=== PATIENT | male | born 1945 | race Caucasian/White ===

== ENCOUNTER → 2017-04-25 12:24 | Outpatient (CLI) | payer MEDICARE ==
[2017-04-25 13:22] LABS: CREATININE - SERUM 1.7 mg/dL (0.6-1.3)
== END | disposition home or self-care (01) ==
LOC: D.CT 12:24
PROVIDERS: Family Medicine
DX: R26.89 Other abnormalities of gait and mobility (principal)

== ENCOUNTER → 2017-05-14 07:28 | Outpatient (CLI) | payer MEDICARE | END | disposition home or self-care (01) | LOC: D.OPS 07:28 → D.NM 08:00 | DX: G91.9 Hydrocephalus, unspecified (principal) ==

== ENCOUNTER → 2017-05-25 14:05 | Outpatient (CLI) | payer MEDICARE ==
[2017-05-25 15:08] LABS: CREATININE - SERUM 1.5 mg/dL (0.6-1.3)
== END | disposition home or self-care (01) ==
LOC: D.CT 14:05
PROVIDERS: Family Medicine
DX: I67.9 Cerebrovascular disease, unspecified (principal)

== ENCOUNTER 2017-07-10 12:03 | Inpatient (IN) | payer MEDICARE ==
[~2017-07-10] VITALS: Ht 172.7 cm; Wt 95.9 kg
[2017-07-10 12:59] LABS: BASOPHILS 0.2 % (0-2); EOSINOPHILS 0 % (0-7); HEMATOCRIT 41.5 % (42.0-54.0); HEMOGLOBIN 14.7 g/dL (13.5-17.5); IMMATURE GRANULOCYTES 0.4 % (0-5); LYMPHOCYTES 3.5 % (15-50); MCH 31.3 pg (26.0-34.0); MCHC 35.4 g/dL (31.0-37.0); MCV 88.3 fL (80.0-100.0); MEAN PLATELET VOLUME 10.9 fL (7.4-10.4); MONOCYTES 6.8 % (2-11); NEUTROPHILS 89.1 % (40-80); PLATELET COUNT 108 10x3/uL (130-400); RDW 12.5 % (11.5-14.5); WBC 12.6 10x3/uL (4.8-10.8)
[2017-07-10 13:07] LABS: APTT 25.8 SECONDS (22.8-39.4); INR 1.21 (0.85-1.17); PROTIME 15.2 SECONDS (11.6-15.0)
[2017-07-10 13:18] LABS: ALBUMIN 3.4 g/dL (3.4-5.0); ALKALINE PHOSPHATASE 180 U/L (46-116); ALT (SGPT) 657 U/L (10-68); BILIRUBIN - TOTAL 3.59 mg/dL (0.2-1.3); CALC OSMOLALITY 281 mosm/kg (275-300); CARBON DIOXIDE 26.9 mmol/L (21.0-32.0); CHLORIDE - SERUM 100 mmol/L (98-107); CREATININE - SERUM 1.6 mg/dL (0.6-1.3); GLUCOSE 286 mg/dL (74-106); PROTEIN - SERUM 6.4 g/dL (6.4-8.2); SODIUM 136 mmol/L (136-145); UREA NITROGEN 12 mg/dL (7-18); eGFR NON AFRICAN AMERICAN 46 mL/min (90-120)
[2017-07-10 13:24] LABS: CREATINE KINASE 80 UL (21-232)
[2017-07-10 13:25] LABS: TROPONIN-I < 0.017 ng/mL (0.000-0.060)
[2017-07-10 13:49] LABS: APPEARANCE CLEAR (CLEAR); BACTERIA FEW /hpf (NONE SEEN); BILIRUBIN NEGATIVE (NEGATIVE); COLOR YELLOW (YELLOW); EPITHELIAL CELLS OCC /hpf (0-5); GLUCOSE 1000 mg/dL (NEGATIVE); KETONE SMALL mg/dL (NEGATIVE); LEUKOCYTE ESTERASE NEGATIVE (NEGATIVE); NITRITE NEGATIVE (NEGATIVE); PROTEIN NEGATIVE (NEGATIVE); RED CELLS - URINE OCC /hpf (0-5); WHITE CELLS - URINE 0-5 /hpf (0-5)
[2017-07-10 13:54] LABS: UDS - AMPHET NEGATIVE QUAL (NEGATIVE); UDS - BARB NEGATIVE QUAL (NEGATIVE); UDS - BENZO NEGATIVE QUAL (NEGATIVE); UDS - COCAINE NEGATIVE QUAL (NEGATIVE); UDS - METH NEGATIVE QUAL (NEGATIVE); UDS - OPIATE NEGATIVE QUAL (NEGATIVE); UDS - PCP NEGATIVE QUAL (NEGATIVE); UDS - THC NEGATIVE QUAL (NEGATIVE)
[2017-07-10] MEDS ORDERED: OMEPRAZOLE20 M1 PO (17:02)
[2017-07-10] MEDS ORDERED: COREG12.5 MG PO (17:02)
[2017-07-10] MEDS ORDERED: LANOXIN125 MCG PO (17:03)
[2017-07-10] MEDS ORDERED: GLUCOPHAGE1000 MG PO (17:03)
[2017-07-10] MEDS ORDERED: ZYLOPRIM100 MG PO (17:04)
[2017-07-10] MEDS ORDERED: ANTIVERT12.5 MG PO (17:04)
[2017-07-10] MEDS ORDERED: COZAAR50 MG PO (17:05)
[2017-07-10] MEDS ORDERED: PROSCAR5 MG PO (17:05)
[2017-07-10] MEDS ORDERED: ZOCOR40 MG PO (17:05)
[2017-07-10] MEDS ORDERED: PAXIL20 MG PO (17:06)
[2017-07-10] MEDS ORDERED: PYRIDOXINE HCL100 MG PO (17:06)
[2017-07-10] MEDS ORDERED: VITAMIN B-121000 MCG PO (17:07)
[2017-07-10] MEDS ORDERED: MAGNESIUM OXID250 MG PO (17:07)
[2017-07-10] MEDS ORDERED: VITAMIN D5000 UNIT PO (17:07)
[2017-07-10] MEDS ORDERED: ASPIRIN325 MG PO (17:07)
[2017-07-10] MEDS ORDERED: FOLIC ACID0.8 MG PO (17:08)
[2017-07-10] MEDS ORDERED: LUTEIN20 MG PO (17:09)
[2017-07-10] MEDS ORDERED: FLOMAX0.4 MG PO (17:09)
[2017-07-10 17:34] VITALS: BP 168/91; BMI 32.6
[2017-07-10 20:16] VITALS: BP 156/57
--- NOTE | 2017-07-11 01:46 | NUR ---
NURSE ROUNDS 07/10/17 20:30 - PT LYING IN BED, AWAKE, ALERT, ORIENTED AT THAT TIME, DENIED ANY NEEDS. HOWEVER, THE SHIFT HAS PROGRESSED, PT HAS HAD SEVERAL BOUTS OF ODD BEHAVIOR, AND CONFUSION. I HAVE BEEN IN PTS ROOM SEVERAL TIMES SINCE SHIFT CHANGE AND ORIGINAL NURSING ROUND. THE SECOND TIME I WENT INTO PATIENTS ROOM TO CHECK FSBS, PT WAS LYING IN BED ON HIS RIGHT SIDE, COMPLETELY NAKED, WITHOUT ANY EXPLANATION TO WHY. THE THIRD TIME I WENT INTO PATIENTS ROOM DURING HOURLY ROUNDS, HE HAD TAKEN THE IV TUBING OUT OF HIS J-LOOP SO THE FLUID WAS DRAINING ALL OF THE FLOOR. THE FOURTH TIME I CHECKED ON PT, HE WAS LYING ACROSS HIS BED, HAD BEEN INCONTINENT OF URINE, AND UNABLE TO SIT UP ON HIS OWN. PT IS UNABLE TO UNDERSTAND HOW AND WHEN TO USE HIS CALL LIGHT. PT CONTINUES TO OCCLUDE HIS IV, SO I HAVE SL IV AT THIS TIME. PT HAS BEEN BATHED, LINEN AND GOWN CHANGE, PLACED BACK IN BED, AND RESTING COMFORTABLY AT THIS TIME. WILL CONTINUE TO MONITOR CLOSELY. BED LOW, CALL LIGHT IN REACH, SIDE RAILS X 2, HOB 20 DEGREES, BED ALARM ON.
[2017-07-11 04:55] VITALS: BP 134/75
[2017-07-11 05:29] LABS: BASOPHILS 0.2 % (0-2); EOSINOPHILS 0.4 % (0-7); HEMATOCRIT 40.9 % (42.0-54.0); HEMOGLOBIN 14.4 g/dL (13.5-17.5); IMMATURE GRANULOCYTES 0.4 % (0-5); LYMPHOCYTES 5.8 % (15-50); MCH 31.4 pg (26.0-34.0); MCHC 35.2 g/dL (31.0-37.0); MCV 89.1 fL (80.0-100.0); MEAN PLATELET VOLUME 10.8 fL (7.4-10.4); NEUTROPHILS 87.2 % (40-80); PLATELET COUNT 113 10x3/uL (130-400); RBC 4.59 10x6/uL (4.20-6.10); RDW 12.8 % (11.5-14.5)
[2017-07-11 05:30] LABS: WBC 8.1 10x3/uL (4.8-10.8)
[2017-07-11 05:54] LABS: INR 1.28 (0.85-1.17); PROTIME 15.9 SECONDS (11.6-15.0)
[2017-07-11 06:13] LABS: ALBUMIN 3.4 g/dL (3.4-5.0); ANION GAP 11.6 mmol/L (8-16); BILIRUBIN - TOTAL 3.5 mg/dL (0.2-1.3); CARBON DIOXIDE 29.1 mmol/L (21.0-32.0); CHOL - HDL RATIO 3.5 ratio (2.3-4.9); CREATININE - SERUM 1.4 mg/dL (0.6-1.3); POTASSIUM - SERUM 3.7 mmol/L (3.5-5.1); PROTEIN - SERUM 6.3 g/dL (6.4-8.2)
[2017-07-11 06:16] LABS: % SATURATION 11 % (15-55); IRON 38 ug/dl (35-150); TOTAL IRON BIND CAPACITY 323 ug/dl (260-445); UNSAT IRON BIND CAPACITY 285 ug/dl (150-375)
--- NOTE | 2017-07-11 06:34 | HP ---
PATIENT: FERNANDO DING MEDICAL RECORD: [id number] ACCOUNT: [id number] LOCATION:[address] : [birth year] ADMISSION DATE: 07/10/17 HISTORY AND PHYSICAL EXAMINATION DATE OF ADMISSION: 07/10/2017 CHIEF COMPLAINT: Nausea and vomiting. HISTORY OF PRESENT ILLNESS: The patient is a 72-year-old gentleman who states he was awakened early this morning to have nausea and vomiting, some abdominal discomfort, presents to the Emergency Room for evaluation. PAST MEDICAL HISTORY: He has had a history of having gout. He has had hypertension. He has had a tonsillectomy. He has had a pacemaker placed, hypertension, diabetes mellitus, and hyperlipidemia. PAST SURGICAL HISTORY: He has had a tonsillectomy, adenoidectomy, had a hernia repair in 1970. He has had a cardiac ablation for atrial fibrillation. He has also had cataract from the right eye. FAMILY HISTORY: Mother of lung cancer. Father had Guillain-Crescent. HABITS: The patient is a nonsmoker, nondrinker. SOCIAL HISTORY: Born and raised in [facility]. He is retired. The patient does have 2 years of college. He is . MEDICATIONS: Include allopurinol 100 mg 1 p.o. q. day, aspirin 325 once a day, carvedilol 12.5 one p.o. b.i.d., digoxin 0.125 p.o. q. day, finasteride 5 mg once a day, folic acid 800 mcg once a day, losartan 50 mg once a day, meclizine 12.5 one every 6 hours p.r.n. dizziness, metformin 500 mg 2 tabs p.o. b.i.d. 1 at noon, omeprazole 20 mg once a day, Paxil 20 mg once a day, Zocor 40 mg daily, tamsulosin 0.4 mg p.o. q. day, vitamin D3 5000 international units daily. ALLERGIES: THE PATIENT IS ALLERGIC TO BUMEX, CIPRO, MUSHROOM PREDNISONE, REQUIP, SHELLFISH, AND SULFA. REVIEW OF SYSTEMS: CONSTITUTIONAL: He denies any headaches, seizure or syncope. Denies change in visual or auditory acuity. PULMONARY: He denies any shortness of breath, cough, congestion, history of TB, asthma or bronchitis. CARDIOVASCULAR: He has had no chest pain, palpitation, PND or orthopnea. GASTROINTESTINAL: No chronic nausea, vomiting, melena or hematochezia. GENITOURINARY: No urgency, frequency or dysuria. PHYSICAL EXAMINATION: VITAL SIGNS: His temperature is 99.4, his pulse was 80, respirations 24, his blood pressure 166/100. HEENT: Head is normocephalic. No lesions. Ears: TMs clear. Eyes: Pupils equal, round and reactive to light and his extraocular movements are intact. His nasal cavity, oral cavity and oropharynx clear. NECK: Supple. There is no adenopathy. HEART: Has a regular rate and rhythm. No murmurs, gallops, rub. HISTORY AND PHYSICAL [id number] MAGBYFERNANDO R LUNGS: Clear. ABDOMEN: Soft. There is minimal midepigastric tenderness. There is no ascites noted. EXTREMITIES: Lower extremities have no edema. LABORATORY DATA: The patient had a white count of 12.6, hemoglobin is 14.7 and his hematocrit is 41.5, platelets are 108. Sodium is 136, potassium 4, chloride is 100, CO2 is 26.9, BUN is 12, creatinine is 1.6, glucose is 286. He had AST of 951, total bilirubin was 3.59, ALT 657, alkaline phosphatase 180. Troponins were normal. His lipase is 843. ASSESSMENT: Acute onset of nausea and vomiting, hepatocellular dysfunction, possible pancreatitis with elevated lipase. PLAN: The patient will be admitted. He will be given clear liquid diet only. We will try to control his nausea and GI consultation will be obtained. We will recheck LFTs in the morning. We will check hepatitis profile, recheck lipase, also had a CA 19-9. TRANSINT:[id number] Voice Confirmation ID: [id number] DOCUMENT ID: [id number] LOLY FORDE MD at 0634 CC: [id number] DICTATION DATE: 07/10/171755 DESIGNER ARCHITECT: 07/10/172034 ADM IN [address] [id number] [place] [address]
[2017-07-11 06:46] LABS: BILIRUBIN - DIRECT 2.24 mg/dL (0.00-0.30); BILIRUBIN - INDIRECT 1.26 mg/dL (0.00-1.00)
[2017-07-11 08:43] VITALS: BP 155/75
[2017-07-11 11:17] LABS: HEPATITIS C ANTIBODY <0.1 (0.0-0.9)
[2017-07-11 11:58] VITALS: BP 147/80
[2017-07-11 13:38] VITALS: Ht 172.7 cm; Wt 95.9 kg
[2017-07-11 16:16] VITALS: BP 160/77
--- NOTE | 2017-07-11 16:58 | NUR ---
Patient Name: FERNANDO DING Admission Status: ER Accout number: [id number] Admission Date: 07-10-2017 : 1945 Admission Diagnosis: Attending: ASHWIN Current LOS: 1 Anticipated DC Date: Planned Disposition: Home Primary Insurance: MEDICARE A & B Discharge Planning Comments: * Is the patient Alert and Oriented? Yes 0 * How many steps to enter\exit or inside your home? 4 0 * PCP DR. FORDE 0 * Pharmacy [facility] 0 * Preadmission Environment Home with Family 0 * ADLs Independent 0 * Equipment [facility] CPAP 0 * Other Equipment [facility] - MEDICAL EQUIPMENT PROVIDER PREFERENCE 0 * List name and contact numbers for known caregivers / representatives who currently or will assist patient after discharge: MALLIKA IVERSON, SISTER, 0 * Community resources currently utilized None 0 * Please name any agencies selected above. NONE 0 * Additional services required to return to the preadmission environment? No 0 * Can the patient safely return to the preadmission environment? Yes 0 * Has this patient been hospitalized within the prior 30 days at any hospital? No 0 CM MET WITH PT IN ROOM TO DISCUSS DISCHARGE PLANNING AND NEEDS. PT REPORTS LIVING AT HOME INDEPENDENTLY WITH HIS ADULT SISTER. PT HAS CANE AND CPAP FROM [facility]. PT HAS NO OUTSIDE SERVICES ASSISTING IN THE HOME. CM DISCUSSED AVAILABILITY OF HOME HEALTH, REHAB SERVICES AND MEDICAL EQUIPMENT. PT DENIES DISCHARGE NEEDS, REPORTS HIS SISTER WILL PICK HIM UP FOR DISCHARGE HOME. Food Service Assistant: Vinicio Hinkle
--- NOTE | 2017-07-11 18:07 | NUR ---
RESTING IN BED. NO CHANGE. ALERT AND ORIENTED X4. FAMILY AT BEDSIDE. REQUESTING DIET TO BE ADVANCED. DENIES SOB OR PAIN. CONTINUE PLAN OF CARE. BED LOCKED AND LOW. CALL LIGHT IN REACH. TWO SIDERAILS UP.
[2017-07-11 19:00] VITALS: BP 172/82
--- NOTE | 2017-07-11 23:00 | NUR ---
PT UP IN CHAIR. UP AD RUPA. [place]. ALERT & ORIENTED TO PERSON, PLACE, AND SITUATION. IV REMOVED BY PT, IV NEEDS TO BE RESITED. FSBS ACHS. REFUSES SCD'S. CALL LIGHT WITHIN REACH.
[2017-07-12] VITALS: BP 153/96
[2017-07-12 04:00] VITALS: BP 166/86
--- NOTE | 2017-07-12 04:29 | NUR ---
FUNERAL HOME ASSISTANT AT BEDSIDE TO OBTAIN VITALS, CALL LIGHT IN REACH. WILL CONTINUE TO MONITOR.
--- NOTE | 2017-07-12 05:36 | NUR ---
PT LYING IN BED. EYES CLOSED. CHEST RISING AND FALLING. BED IN LOWEST POSITION AND CALL LIGHT WITHIN REACH.
[2017-07-12 05:54] LABS: BASOPHILS 0.4 % (0-2); EOSINOPHILS 0.4 % (0-7); HEMATOCRIT 42.8 % (42.0-54.0); HEMOGLOBIN 14.6 g/dL (13.5-17.5); IMMATURE GRANULOCYTES 0.4 % (0-5); LYMPHOCYTES 16.5 % (15-50); MCH 30.9 pg (26.0-34.0); MCHC 34.1 g/dL (31.0-37.0); MCV 90.7 fL (80.0-100.0); MEAN PLATELET VOLUME 11.6 fL (7.4-10.4); MONOCYTES 10.1 % (2-11); NEUTROPHILS 72.2 % (40-80); PLATELET COUNT 100 10x3/uL (130-400); RBC 4.72 10x6/uL (4.20-6.10); RDW 12.8 % (11.5-14.5)
[2017-07-12 05:59] LABS: WBC 5.3 10x3/uL (4.8-10.8)
[2017-07-12 06:15] LABS: INR 1.18 (0.85-1.17); PROTIME 14.9 SECONDS (11.6-15.0)
[2017-07-12 06:35] LABS: ALBUMIN 3.2 g/dL (3.4-5.0); BILIRUBIN - TOTAL 2.04 mg/dL (0.2-1.3); CARBON DIOXIDE 27.5 mmol/L (21.0-32.0); CREATININE - SERUM 1.5 mg/dL (0.6-1.3); PROTEIN - SERUM 6.1 g/dL (6.4-8.2)
[2017-07-12 06:36] LABS: ANION GAP 13.1 mmol/L (8-16); POTASSIUM - SERUM 4.6 mmol/L (3.5-5.1)
--- NOTE | 2017-07-12 07:49 | NUR ---
AAOX4 RESP UNLABORED DENIES ANY NEEDS OR DISCOMFORT AT THIS TIME NAD NOTED
[2017-07-12 08:23] VITALS: BP 175/93
--- NOTE | 2017-07-12 09:11 | NUR ---
ASSESSMENT COMPLETED.AWAKE AND ALERT. [place]. CONFUSED AT TIMES.ABD DISTENDED. ON ROOM AIR. NO IV. DENIES ANY NEEDS. MAY LEAVE IV OUP PER DR. FORDE. CALL LIGHT IN REACH WITH SR UP. WILL MONITOR
[2017-07-12 11:36] VITALS: BP 124/97
[2017-07-12 12:18] LABS: HELICOBACTER PYLORI IGM AB <1.0 units (0.0-8.9)
[2017-07-12 13:18] LABS: FOLATE (FOLIC ACID) - SERUM >20.0 ng/mL (>3.0)
[2017-07-12 14:21] LABS: ANA REFLEX - DIRECT Negative (Negative); EBV - EARLY ANTIGEN AB IGG <9.0 U/mL (0.0-8.9); EBV - NUCLEAR ANTIGEN AB IGG 69.5 U/mL (0.0-17.9); EBV VIRAL CAPSID AB IGG >600.0 U/mL (0.0-17.9); EBV VIRAL CAPSID AB IGM <36.0 U/mL (0.0-35.9)
[2017-07-12 15:49] VITALS: BP 134/80
--- NOTE | 2017-07-12 16:04 | NUR ---
LYING QUIETLY WITH EYES CLOSED. NO DISTRESS NOTED.
[2017-07-12 19:00] VITALS: BP 163/92
--- NOTE | 2017-07-12 20:00 | NUR ---
PT RESTING IN BED. ALERT/ORIENTED. NONLABORED RESPIRATIONS ON ROOM AIR. NO IV ACCESS, AGREED TO LET NURSE START A SALINE LOCK IN AM BEFORE HIS SCHEDULED LAP CHOLEY SURVEY. AT BEDSIDE. SEE SHIFT ASSESSMENT. CPOC.
[2017-07-13] VITALS (16 sets, daily range): BP systolic 106–168; BP diastolic 76–108
--- NOTE | 2017-07-13 03:26 | NUR ---
RESTING WITH NO DISTRESS. AT BEDSIDE. CPOC.
[2017-07-13 05:20] LABS: BASOPHILS 0.5 % (0-2); EOSINOPHILS 0.5 % (0-7); HEMATOCRIT 41.7 % (42.0-54.0); HEMOGLOBIN 14.5 g/dL (13.5-17.5); IMMATURE GRANULOCYTES 0.5 % (0-5); LYMPHOCYTES 26.8 % (15-50); MCH 30.9 pg (26.0-34.0); MCHC 34.8 g/dL (31.0-37.0); MEAN PLATELET VOLUME 11.3 fL (7.4-10.4); MONOCYTES 10.9 % (2-11); NEUTROPHILS 60.8 % (40-80); PLATELET COUNT 111 10x3/uL (130-400); RDW 12.4 % (11.5-14.5); WBC 4.4 10x3/uL (4.8-10.8)
[2017-07-13 05:23] LABS: MCV 88.7 fL (80.0-100.0)
[2017-07-13 05:37] LABS: ALBUMIN 3.1 g/dL (3.4-5.0); BILIRUBIN - TOTAL 1.3 mg/dL (0.2-1.3); CALCIUM 8.7 mg/dL (8.5-10.1); CARBON DIOXIDE 27.3 mmol/L (21.0-32.0); CREATININE - SERUM 1.5 mg/dL (0.6-1.3); PROTEIN - SERUM 6.5 g/dL (6.4-8.2)
[2017-07-13 05:38] LABS: ANION GAP 10.3 mmol/L (8-16); POTASSIUM - SERUM 3.6 mmol/L (3.5-5.1)
--- NOTE | 2017-07-13 07:10 | NUR ---
READY FOR SURGERY. IV TO LEFT HAND. ON ROOM AIR. ALERT AND ORIENTED. CALL LIGHT IN REACH. FAMILY AT BED SIDE
--- NOTE | 2017-07-13 10:31 | NUR ---
PATIENT ARRIVED PACU WITH BP 196/111. NEXT CONSECTUIVE PRESSURES CONTIUNED TO RISE. ANESTHESIA NOTIFIED, HYDRALAZINE ORDERED 10MG Q10 FOR 2 DOSES. TOTAL OF 20 GIVEN OVER 20 MINUTES. PATIENT STATED HE NEEDED TO VOID, BUT WAS UNABLE. DR HURD NOTIFIED, ORDERS RECIEVED TO PLACE INDWELLING DILL CATHETER. PATIENT FEELING SOB. DUONEB UPDRAFT GIVEN.
[2017-07-13 11:06] LABS: PRO BNP 2192 pg/mL (0-125); TROPONIN-I < 0.017 ng/mL (0.000-0.060)
--- NOTE | 2017-07-13 12:27 | NUR ---
37 MINUTES HOLDING TIME FROM PHASE 2 DISCHARGE TILL TRANSPORT TO ICU. NO RN AVAILABLE IN ICU TO TAKE REPORT. MULTIPLE CALLS TO BILINGUAL EXECUTIVE ASSISTANT AND ICU BEFORE TRANSPORT COULD TAKE PLACE. PATIENT TRANSPORTED TO RM 2308.
--- NOTE | 2017-07-13 13:33 | NUR ---
DR PATTERSON NOTIFIED OF CONSULT. PT IN AFIB HR 125.
--- NOTE | 2017-07-13 14:26 | NUR ---
SECOND IV STARTED IN LEFT FA WTIH 20G CATH, ASEPTIC TECH, GOOD BLOOD RETURN, AND FLUSHED EASILY.
--- NOTE | 2017-07-13 14:27 | NUR ---
PATIENT STATES HE FEELS LIKE HE ALMOST . PATIENT IS UNABLE TO TELL ME AT WHAT POINT HE FELT THIS WAY. TACHYPNEA NOTED, AND PATIENT IS DIAPHORETIC. CM AFIB WITH COUPLETS NOTED AT RATE OF 130'S. PATIENT RETURNS TO SLEEP EASILY.
[2017-07-13 15:21] LABS: MITOCHONDRIAL ANTIBODY 8.8 Units (0.0-20.0); SMOOTH MUSCLE ABS (ACTIN) 11 Units (0-19)
--- NOTE | 2017-07-13 15:30 | NUR ---
DR PATTERSON HERE SPEAKING TO FAMILY. NEW ORDERS OBTAINED.
--- NOTE | 2017-07-13 17:40 | NUR ---
SLEEPING NO DISTRESS NOTED. SR UP X 2.
--- NOTE | 2017-07-13 19:30 | NUR ---
SHIFT ASSESSMENT COMPLETED. SEE ASSESSMENT FLOWSHEET FOR DETAILS.
[2017-07-13 19:45] LABS: CKMB 0.5 U/L (0.0-3.6); CREATINE KINASE 92 UL (21-232); TROPONIN-I 0.026 ng/mL (0.000-0.060)
--- NOTE | 2017-07-13 20:10 | NUR ---
FAMILY OBTAINED FROM WAITING ROOM TO HELP REORIENT. WAS CONFUSED TO TIME, PLACE AND SITATION AND TRYING TO PULL OUT DILL CATHETER.
--- NOTE | 2017-07-13 22:10 | NUR ---
FAMILY LEFT FOR THE WAITING ROOM. COOPERATIVE AND MORE ORIENTED AT THIS TIME. NOT TRYING TO PULL AT INVASIVE LINES. WILL MONITOR.
--- NOTE | 2017-07-13 23:15 | NUR ---
REASSESSMENT COMPLETED. SEE ASSESSMENT FLOWSHEET. WILL MONITOR.
--- NOTE | 2017-07-13 23:40 | NUR ---
DOES C/O PAIN TO ABDOMEN AT THIS TIME. NORCO GIVEN WHEN OFFERED.
[2017-07-14] VITALS (51 sets, daily range): BP systolic 107–169; BP diastolic 47–107
--- NOTE | 2017-07-14 00:30 | NUR ---
EYES CLOSED. NO ACUTE DISTRESS NOTED.
--- NOTE | 2017-07-14 02:00 | NUR ---
EYES CLOSED. NO ACUTE DISTRESS NOTED.
[2017-07-14 02:14] LABS: CKMB 0.2 U/L (0.0-3.6); CREATINE KINASE 82 UL (21-232); TROPONIN-I 0.022 ng/mL (0.000-0.060)
--- NOTE | 2017-07-14 04:30 | NUR ---
REASSESSMENT COMPLETED. SEE ASSESSMENT FLOWSHEET. NO NEW ACUTE CHANGES NOTED. NIGEL, PHLEBO AT BEDSIDE TO DRAW AM LABS. DENIES PAIN OR NEEDS AT THIS TIME. DENIES NAUSEA.
[2017-07-14 05:19] LABS: BASOPHILS 0.1 % (0-2); EOSINOPHILS 0 % (0-7); HEMOGLOBIN 14.4 g/dL (13.5-17.5); IMMATURE GRANULOCYTES 0.3 % (0-5); LYMPHOCYTES 8.8 % (15-50); MCHC 34.3 g/dL (31.0-37.0); MCV 90.3 fL (80.0-100.0); MEAN PLATELET VOLUME 11.5 fL (7.4-10.4); MONOCYTES 11.9 % (2-11); NEUTROPHILS 78.9 % (40-80); PLATELET COUNT 112 10x3/uL (130-400); RBC 4.65 10x6/uL (4.20-6.10); RDW 13.1 % (11.5-14.5); WBC 9.3 10x3/uL (4.8-10.8)
[2017-07-14 05:45] LABS: ALBUMIN 2.9 g/dL (3.4-5.0); BILIRUBIN - TOTAL 1.91 mg/dL (0.2-1.3); CALCIUM 8.5 mg/dL (8.5-10.1); CARBON DIOXIDE 27.1 mmol/L (21.0-32.0); CREATININE - SERUM 1.8 mg/dL (0.6-1.3); PROTEIN - SERUM 6.4 g/dL (6.4-8.2)
[2017-07-14 05:49] LABS: ANION GAP 11.1 mmol/L (8-16); POTASSIUM - SERUM 4.2 mmol/L (3.5-5.1)
--- NOTE | 2017-07-14 06:00 | NUR ---
NSR ON THE MONITOR. ON ROOM AIR. O2 SATS 92-96% ON ROOM AIR. NO ACUTE DISTRESS NOTED.
--- NOTE | 2017-07-14 07:00 | NUR ---
RECD CARE OF PT. A&O X3
--- NOTE | 2017-07-14 08:37 | NUR ---
BREAKFAST TRAY SERVED.
[2017-07-14 08:47] LABS: CREATINE KINASE 80 UL (21-232); TROPONIN-I < 0.017 ng/mL (0.000-0.060)
--- NOTE | 2017-07-14 09:04 | NUR ---
MR. DING WAS MISSING HIS TEETH AND CELL PHONE. HIS SISTER IS AT BEDSIDE. SHE HAS BOTH OF THEM.
--- NOTE | 2017-07-14 09:30 | NUR ---
REPOSITIONED IN BED. PULLED UP IN BED.
--- NOTE | 2017-07-14 12:00 | NUR ---
FAMILY AT BEDSIDE. UPDATED.
--- NOTE | 2017-07-14 13:30 | NUR ---
REPOSITIONED IN BED. PULLED UP IN BED.
--- NOTE | 2017-07-14 13:38 | NUR ---
NITRO INITIATED FOR 169/107 BP.
--- NOTE | 2017-07-14 13:55 | NUR ---
NITRO BEING TITRTED TO EFFECT.
--- NOTE | 2017-07-14 14:17 | NUR ---
EKG BEING DONE FOR ECTOPY.
--- NOTE | 2017-07-14 14:31 | NUR ---
DR. LEONARDO CONKLIN FOR ECTOPY AND EKG RESULTS.
--- NOTE | 2017-07-14 15:01 | NUR ---
DR. VELAZQUEZ PAGED FOR ECTOPY AND INCREASED CRACKLES AND WHEEZES IN LUNGS.
--- NOTE | 2017-07-14 15:10 | NUR ---
DR. VELAZQUEZ RETURNED PAGE. ORDERS REC'D . CONSULT JADE.
--- NOTE | 2017-07-14 15:15 | NUR ---
REPOSITIONED IN BED. PULLED UP IN BED.
--- NOTE | 2017-07-14 15:27 | NUR ---
SPOKE WITH DR. HANSEN ABOUT CONSULT.
--- NOTE | 2017-07-14 15:30 | NUR ---
DR. PATTERSON RETURNED SECOND PAGE. UPDATED ABOUT PVC'S. PAC'S AND ABOUT EKG RESULTS. ORDERS REC'D TO INCREASE CARDIZEM DRIP TO 10CC VA HOUR.
--- NOTE | 2017-07-14 16:09 | NUR ---
DR. HANSEN AT BEDSIDE.
--- NOTE | 2017-07-14 16:20 | NUR ---
PULLED UP IN BED. REPOSITIONED FOR COMFORT.
[2017-07-14 16:47] LABS: CKMB 0.7 U/L (0.0-3.6); CREATINE KINASE 98 UL (21-232); MAGNESIUM - SERUM 1.8 mg/dL (1.8-2.4)
[2017-07-14 16:51] LABS: TROPONIN-I < 0.017 ng/mL (0.000-0.060)
--- NOTE | 2017-07-14 17:00 | NUR ---
CE NORMAL. MAG LEVEL NORMAL.
--- NOTE | 2017-07-14 18:28 | NUR ---
PULLS BOTH PIV'S OUT.
--- NOTE | 2017-07-14 18:28 | NUR ---
RESTARTED PIV X2 AT LEFT FORE ARM X2 STIC KS. FAMILY AT BEDSIDE.
--- NOTE | 2017-07-14 19:45 | NUR ---
RECEIVED CARE OF PT, ASSESSMENT PER FLOWSHEET. PT ORIENTED TO SELF, ON 2L O2 VIA NC, HR CONTROLLED A-FIB WITH FREQUENT PACS AND PVCS, EXP WHEEZES AUSCULTATED BILATERALLY WITH DIMINISHED BASES, PPP, BS HYPOACTIVE, ABD FIRM AND DISTENDED, MILDLY TENDER TO PALP, GTTS INFUSING PER FLOWSHEET, FAMILY AT BEDSIDE.
--- NOTE | 2017-07-14 21:20 | NUR ---
PT SISTERS AT BEDSIDE, ALL DENY ANY NEEDS, CONT TO MONITOR.
[2017-07-14 22:43] LABS: CALC OSMOLALITY 283 mosm/kg (275-300); CALCIUM 9.1 mg/dL (8.5-10.1); CARBON DIOXIDE 27.2 mmol/L (21.0-32.0); CHLORIDE - SERUM 101 mmol/L (98-107); CKMB 0.3 U/L (0.0-3.6); CREATINE KINASE 79 UL (21-232); CREATININE - SERUM 1.8 mg/dL (0.6-1.3); POTASSIUM - SERUM 3.4 mmol/L (3.5-5.1); SODIUM 137 mmol/L (136-145); TROPONIN-I < 0.017 ng/mL (0.000-0.060); UREA NITROGEN 21 mg/dL (7-18); eGFR NON AFRICAN AMERICAN 40 mL/min (90-120)
[2017-07-14 22:44] LABS: GLUCOSE 229 mg/dL (74-106)
--- NOTE | 2017-07-14 23:55 | NUR ---
DR PATTERSON PAGED REGARDING PT C/O SOB AND ARRYTHMIAS, ORDERS RECEIVED.
[2017-07-15] VITALS (24 sets, daily range): BP systolic 115–167; BP diastolic 76–101
--- NOTE | 2017-07-15 00:26 | NUR ---
FIRST OF 4 10 MEQ KCL RIDERS INITIATED PER ELECTROLYTE PROTOCOL TO TREAT K+ OF 3.4 PER ELECTROLYTE PROTOCOL.
--- NOTE | 2017-07-15 01:07 | NUR ---
PT RESTING WITH HOME CPAP IN PLACE, BP STABLE, CONT POC.
--- NOTE | 2017-07-15 04:30 | NUR ---
PT VERY AGITATED AND STATING THAT HE HAS BEEN KIDNAPPED, ALL ATTEMPTS TO REORIENT ARE UNSUCCESSFUL, PT SISTER BROUGHT BACK TO SIT WITH HIM. PT CALMER AND COOPERATIVE WITH HER PRESENCE, ABLE TO SOMEWHAT REORIENT PT.
--- NOTE | 2017-07-15 06:10 | NUR ---
PT SISTERS REMAIN AT BEDSIDE, PT VISITING EASILY IN NO APPARENT DISTRESS, PACED ON CM WITH OCC PVC'S.
[2017-07-15 06:11] LABS: BASOPHILS 0.1 % (0-2); EOSINOPHILS 0 % (0-7); HEMATOCRIT 37.5 % (42.0-54.0); HEMOGLOBIN 12.7 g/dL (13.5-17.5); IMMATURE GRANULOCYTES 0.4 % (0-5); LYMPHOCYTES 9.5 % (15-50); MCH 30.5 pg (26.0-34.0); MCHC 33.9 g/dL (31.0-37.0); MCV 89.9 fL (80.0-100.0); MEAN PLATELET VOLUME 11.7 fL (7.4-10.4); MONOCYTES 9.4 % (2-11); NEUTROPHILS 80.6 % (40-80); PLATELET COUNT 111 10x3/uL (130-400); RBC 4.17 10x6/uL (4.20-6.10); RDW 12.8 % (11.5-14.5); WBC 10.4 10x3/uL (4.8-10.8)
[2017-07-15 06:57] LABS: ALBUMIN 2.5 g/dL (3.4-5.0); ALKALINE PHOSPHATASE 106 U/L (46-116); BILIRUBIN - DIRECT 0.59 mg/dL (0.00-0.30); BILIRUBIN - INDIRECT 0.83 mg/dL (0.00-1.00); BILIRUBIN - TOTAL 1.42 mg/dL (0.2-1.3); CALC OSMOLALITY 280 mosm/kg (275-300); CALCIUM 8.8 mg/dL (8.5-10.1); CARBON DIOXIDE 26.8 mmol/L (21.0-32.0); CHLORIDE - SERUM 101 mmol/L (98-107); CKMB 0.4 U/L (0.0-3.6); CREATINE KINASE 77 UL (21-232); CREATININE - SERUM 1.5 mg/dL (0.6-1.3); GLUCOSE 221 mg/dL (74-106); MAGNESIUM - SERUM 1.8 mg/dL (1.8-2.4); PHOSPHOROUS 2.4 mg/dL (2.5-4.9); PROTEIN - SERUM 6.1 g/dL (6.4-8.2); SODIUM 136 mmol/L (136-145); THYROID STIMULATING HORMONE 0.76 uIU/mL (0.36-3.74); UREA NITROGEN 19 mg/dL (7-18); eGFR NON AFRICAN AMERICAN 49 mL/min (90-120)
[2017-07-15 07:01] LABS: ALT (SGPT) 76 U/L (10-68); TROPONIN-I < 0.017 ng/mL (0.000-0.060)
--- NOTE | 2017-07-15 17:40 | NUR ---
ABD LARGE DISTENDED BAND AIDS X 2 DRY AND INTACT. HYPOACTIVE BOWEL SOUNDS. BECOMES SHORT OF BREATH WHEN REPOSITIONING.
--- NOTE | 2017-07-15 17:41 | NUR ---
DR. PATTERSON CALLED TO DAY ABOUT ELEVATED BLOOD PRESSURE AND CHANGING PO MEDS FOR HEART RATE. ORDERS RECEIVED. PO MEDS GIVEN AND CARDIZEM, STOPPED 20 MIN AFTER PO MEDS GIVEN. CLONDINE GIV3EN FOR BLOOD PRESSURE. PATIENT RESTING WELL STATES HE HAS NO APPETITE. IV LEFT FOREARM WITHOUT SWELLING. PATIENT ALERT THIS AFTER NOON ADMITS THAT HE GETS ALITTLE CONFUSED AT TIMES. NAPPING AT INTERVALS. DILL CATH PATENT AND DRIAINING NAHED URINE.
--- NOTE | 2017-07-15 19:30 | NUR ---
SHIFT ASSESSMENT COMPLETE. ARM BAND IS TOO TIGHT. CUT IT OFF AND PLACED A NEW ONE ON HIS R WRIST. HE IS ALERT AND ORIENTED X4. SPEECH IS CLEAR, PERRLA, 3 MM, BRISK REACTION TO LIGHT. NC @ 2L/MIN. S1S2 AUDIBLE. V/S TEMP 98.2 ORAL, HR 94 A-FIB CONTROLLED, RR 16, O2 SAT 98%. EXPIRATORY WHEEZE HEARD BILAT THROUGHOUT ALL LOBES. ABD IS DISTENDED WITH HYPOACTIVE BS. INCISION SITES COVERED WITH BAND-AIDS, CDI. DILL CATH DRAINING NAHED COLORED URINE. RADIAL AND PEDAL PULSES PALP. PACEMAKER PRESENT. PT DENIES ANY REQUESTS AT THIS TIME. WILL CONT TO MONITOR.
--- NOTE | 2017-07-15 21:30 | NUR ---
FAMILY AT BEDSIDE. PT IS SITTING UP IN BED AND IS IN GOOD SPIRTIS. HE REQUESTS FRESH WATER. FRESH WATER DELIVERED PROMPTLY. NO FURTHER REQUESTS AT THIS TIME. CALL LIGHT IN REACH. WILL CONT TO MONITOR.
--- NOTE | 2017-07-15 23:15 | NUR ---
REASSESSMENT COMPLETE AT THIS TIME. ABD IS DISTENDED AND FIRM. INCISION SITES ARE CDI. BP READING IS 157/94 AT THIS TIME. SCDS REMOVED AND SKIN INSPECTED, WNL. S1S2 AUDIBLE, HR 75 BPM. PT IS A&O X4 AND IN GOOD SPIRITS. TEMP 98.3 ORAL. REPOSITIONED FOR COMFORT WITH PILLOW UNDER BACK. CALL LIGHT IN REACH. BED IN LOWEST POSITION. WILL CONT TO MONITOR.
[2017-07-16] VITALS (14 sets, daily range): BP systolic 105–165; BP diastolic 80–98
--- NOTE | 2017-07-16 01:30 | NUR ---
PT AWAKE AND ALERT IN BED AT THIS TIME AND STATES THAT HE IS TRYING TO FALL ASLEEP. HE DENIES ANY REQUESTS AT THIS TIME. NO SIGNS OF DISTRESS NOTED. INSTRUCTED HIM TO PUSH HIS CALL LIGHT IF HE NEEDS ANYTHING. PT STATES THAT HE UNDERSTANDS. CALL LIGHT IN REACH. BED IN LOWEST POSITION. WILL CONT TO MONITOR.
--- NOTE | 2017-07-16 03:30 | NUR ---
REASSESSMENT COMPLETE AT THIS TIME. NO CHANGES NOTED. VSS. NO SIGNS OF ACUTE DISTRESS. PT IS AWAKE AND ALERT AT THIS TIME. HE STATES THAT HE WOULD LIKE SOME FRESH WATER. REFILLED HIS REFRESHMENT. X-RAY IN ROOM NOW. WILL CONT TO MONITOR.
[2017-07-16 03:57] LABS: BASOPHILS 0.2 % (0-2); EOSINOPHILS 0.4 % (0-7); HEMATOCRIT 41.6 % (42.0-54.0); HEMOGLOBIN 14.3 g/dL (13.5-17.5); LYMPHOCYTES 13.4 % (15-50); MCH 30.9 pg (26.0-34.0); MCHC 34.4 g/dL (31.0-37.0); MCV 89.8 fL (80.0-100.0); MEAN PLATELET VOLUME 11.2 fL (7.4-10.4); MONOCYTES 5.9 % (2-11); NEUTROPHILS 79.1 % (40-80); RBC 4.63 10x6/uL (4.20-6.10); RDW 12.9 % (11.5-14.5)
[2017-07-16 04:03] LABS: PLATELET COUNT 141 10x3/uL (130-400)
[2017-07-16 04:16] LABS: ALBUMIN 2.4 g/dL (3.4-5.0); ANION GAP 13.5 mmol/L (8-16); BILIRUBIN - TOTAL 1.4 mg/dL (0.2-1.3); CALCIUM 8.9 mg/dL (8.5-10.1); CARBON DIOXIDE 24.3 mmol/L (21.0-32.0); CREATININE - SERUM 1.3 mg/dL (0.6-1.3); PHOSPHOROUS 2.4 mg/dL (2.5-4.9); POTASSIUM - SERUM 3.8 mmol/L (3.5-5.1); PROTEIN - SERUM 6.4 g/dL (6.4-8.2)
--- NOTE | 2017-07-16 05:30 | NUR ---
STARTED ELECTROLYTE PROTOCOL. 1 PACKAGE OF NEUTRA-PHOS ADMINISTERED. ORDER READS FOLLOWS: NEUTRA-PHOS X3 Q4 HRS. ADMINISTER NEXT PACKET AT 0930. PT DOES NOT HAVE ANY COMPLAINTS AT THIS TIME. WILL CONT TO MONITOR.
--- NOTE | 2017-07-16 07:00 | NUR ---
REPORT RECEIVED. ASSUMED CARE OF PATIENT. ASSESSMENT COMPLETE. PT ALERT AND ORIENTED. ON 2L NC. ABD DISTENDED, NO PAIN, NO TENDERNESS. PT IS PASSING GAS.
--- NOTE | 2017-07-16 10:00 | NUR ---
NUTRITION MONITORING & EVAL CHART REVIEWED, PT UP IN CHAIR. NURSING REPORTS PT WITH 100% INTAKE ADA DIET. RD FOLLOWING
--- NOTE | 2017-07-16 11:50 | NUR ---
REPORT CALLED TO OBIE AGUILAR. PT HAS HAD 2ND PACKET OF NEUTRAPHOS. 1 PKT REMAINS DUE PER PROTOCOL. GLUCOSE HAS BEEN CHECKED AND TREATED. PT HAS BEEN GIVEN NORCO FOR BACK PAIN. HAS ORDERS FOR OOB C MEALS. CARDIZEM DRIP STOPPED ON SUNDAY AFTER PO DOSING STARTED.
--- NOTE | 2017-07-16 11:57 | NUR ---
PACEMAKER INTERROGATION IN PROGRESS AT THIS TIME.
--- NOTE | 2017-07-16 12:54 | NUR ---
PT ESCORTED TO ROOM VIA WHEEL CHAIR. FAMILY CARRIED HOME CPAP MACHINE. LUNCH TRAY PROVIDED TO PATIENT. FAMILY AT BEDSIDE
--- NOTE | 2017-07-16 13:00 | NUR ---
PATIENT TO ROOM AT THIS TIME. IV INTACT. NO COMPLAINTS. FAMILY AT BEDSIDE. CALL LIGHT WITHIN REACH.
--- NOTE | 2017-07-16 15:04 | OP ---
PATIENT NAME: FERNANDO DING MEDICAL RECORD: [id number] :47 LOCATION:[address] [id number] ADMISSION DATE:07/10/17 SURGEON: WILLOW HURD MD DATE OF OPERATION: 07/13/2017 PREOPERATIVE DIAGNOSIS: Symptomatic gallstones. POSTOPERATIVE DIAGNOSES: Symptomatic gallstones with hepatomegaly. PROCEDURES: Laparoscopic cholecystectomy, intraoperative cholangiography without immediate surgeon interpretation, 18-gauge core needle liver biopsy. SURGEON: Willow Hurd MD HUMAN RESOURCES BENEFITS SPECIALIST: None. BLOOD LOSS: Minimal. ANESTHESIA: General. COMPLICATIONS: None. The risks, possible complications, and alternatives to the procedure were explained to the patient. He elects to proceed. OPERATIVE COURSE: The patient was conveyed to the operating room electively on 07/13/2017. General anesthesia was induced by anesthesia staff. The abdomen was sterilely prepped and draped. The indication for the liver biopsy was hepatomegaly. Incision was accomplished within the umbilicus. There was a wide umbilical hernia present. I sharply cleaned the overlying connective tissue from around the umbilical hernia defect. Through the umbilical hernia defect, I advanced a 12-mm trocar. Under direct internal vision utilizing a television camera, after CO2 insufflation, a 5-mm trocar was inserted in the epigastrium. Another 5-mm trocar was inserted in the right upper quadrant. Another 5-mm trocar was inserted far laterally in the right upper quadrant. During insertion of the trocars, there was no apparent injury to the bowels, any intraperitoneal or retroperitoneal structures. Under laparoscopic guidance, I percutaneously accessed the right upper quadrant utilizing an 18-gauge core needle liver biopsy device. Cores were obtained over the convexity of the liver. The biopsy sites were made hemostatic with the electrocautery. I then advanced the cholangiogram trocar. I punctured the fundus of the gallbladder. I aspirated bile. I then injected dye. Under real-time fluoroscopy, fluoroscopic images were obtained. These were sent to the radiologist who called back and stated there was no common bile duct filling defect; however, there were cystic duct defects. The cholangiogram trocar was removed. The gallbladder was then retracted cephalad. There was fatty encased. Blunt OPERATIVE REPORT [id number] FRENANDO DING dissection was begun on the triangle of Calot. One cystic artery and 1 cystic duct were identified. These were clipped multiply and divided between clips. The gallbladder was then excised from its bed in the liver. It was placed within an Endobag retrieval device and was withdrawn through the umbilical fascial defect. The 12-mm trocar was replaced and the abdomen reinsufflated. I irrigated and aspirated the right upper quadrant. There was no bleeding even at low pressure of 8. All the trocars were removed and the abdomen desufflated. The umbilical hernia defect was closed with multiple interrupted 0 Vicryl sutures. The umbilical skin was approximated with interrupted 4-0 Vicryl Rapide sutures. The other skin incisions were closed with an intracuticular 3-0 Vicryl sutures. Benzoin and Steri-Strips were applied. The patient was then extubated and conveyed to the post-anesthesia care unit where he was in stable condition. TRANSINT:[id number] Voice Confirmation ID: [id number] DOCUMENT ID: [id number] WILLOW HURD MD at 1504 CC: ROSY PATTERSON M.D. and LOLY FORDE MD [id number] DICTATION DATE: 07/13/17 1005 CELL SUPPORT OPERATOR: 07/13/17 1419 ADM IN [facility] [address] [id number]
--- NOTE | 2017-07-16 15:04 | CN ---
PATIENT NAME:FERNANDO DING MEDICAL RECORD: [id number] : 49 LOCATION:[address] [address] ADMIT DATE: 07/10/17 ACCOUNT: [id number] CONSULTING PHYSICIAN: WILLOW HURD MD REFERRING PHYSICIAN: LOLY FORDE MD DATE OF CONSULTATION: 07/12/2017 CHIEF COMPLAINT: Nausea and vomiting. HISTORY OF PRESENT ILLNESS: The patient is having no abdominal pain. Nothing seems to aggravates. Nothing seems to alleviate. His abdomen is nontender. There is no Page sign. An abdominal ultrasound revealed cholelithiasis without evidence of cholecystitis. The patient states that he has a stage IV congestive heart failure. He arrived via EMS. The risks, possible complications and alternatives to laparoscopic cholecystectomy, intraoperative cholangiography with probable liver biopsy were explained to the patient. He elects to proceed. REVIEW OF SYSTEMS: Negative for sore throat. Negative for difficulty swallowing. No chest pain, no shortness of breath, no cough, no abdominal pain, no dysuria, no back pain. No headache, no skin lesions. PAST MEDICAL AND SURGICAL HISTORY: Type 2 diabetes mellitus, cardiomyopathy, history of inguinal hernia repair times 3, congestive heart failure as well as some dementia. Hyperlipidemia, gout, also gastroesophageal reflux disease, BPH. FAMILY HISTORY: Not pertinent. SOCIAL HISTORY: Negative for alcohol or tobacco use. HOME MEDICINES: Omeprazole, carvedilol, metformin, allopurinol, meclizine, vitamin B6, vitamin B12, paroxetine, finasteride, simvastatin, losartan, vitamin D3, Mag-Ox, aspirin, folic acid, turmeric, lutein, Flomax, allopurinol, and digoxin. ALLERGIES: SULFA, CIPRO, REQUIP, SHELLFISH, BUMEX, PREDNISONE WELL MICROWAVE POPCORN. PHYSICAL EXAMINATION: GENERAL: The patient does not appear acutely ill. He does not appear chronically ill. VITAL SIGNS: Reviewed. EARS: External ears appear normal. EYES: Extraocular movements are intact. NECK: Trachea is midline. CHEST: No intercostal retractions. PULMONARY: Nonlabored, no stridor. ABDOMEN: Protuberant and nontender. EXTREMITIES: No peripheral cyanosis. INTEGUMENT: No rash, no ulcerations. PSYCHIATRIC: Normal affect. BACK: No thoracic kyphosis. CONSULT REPORT [id number] FERNANDO DING NEUROLOGIC: Evidence of slowing of higher cortical function. LYMPHATICS: No lymphangitic streaking of the exposed extremities. IMPRESSION: Symptomatic gallstones. PLAN: We will be laparoscopic cholecystectomy, intraoperative cholangiography, probable liver biopsy as described above. TRANSINT:[id number] Voice Confirmation ID: [id number] DOCUMENT ID: [id number] WILLOW HURD MD at 1504 CC: ROSY PATTERSON M.D. and LOLY FORDE MD [id number] DICTATION DATE: 07/13/17 0957 NICU RN: 07/13/17 1359 ADM IN [facility] [address] [place] [address]
--- NOTE | 2017-07-16 16:20 | NUR ---
PATIENT SITTING UP IN BED. IV INTACT. FAMILY AT BEDSIDE. CALL LIGHT WITHIN REACH.
--- NOTE | 2017-07-16 18:45 | NUR ---
PATIENT IN BED RESTING QUIETLY AT THIS TIME. IV INTACT. CALL LIGHT WITHIN REACH.
--- NOTE | 2017-07-16 23:55 | NUR ---
REC'D LYING IN BED. NO DISTRESS NOTED. ALERT AND ORIENTED X3. DENIED FURTHER NEEDS AT THIS TIME. IS AT BEDSIDE. INSTRUCTED TO CALL IF NEEDED ANYTHING, VERBALIZED UNDERSTANDING. WILL CONT TO MONITOR. BED LOW, LOCKED, CALL LIGHT IN REACH. WILL ADMIN PM/AM MEDS PRESCRIBED.
[2017-07-17] VITALS: BP 148/85
[2017-07-17 04:00] VITALS: BP 154/92
--- NOTE | 2017-07-17 05:00 | NUR ---
EYES CLOSED RESPIRATIONS WITH EASE AND UNLABORED.
[2017-07-17 05:55] LABS: BASOPHILS 0.5 % (0-2); EOSINOPHILS 0.4 % (0-7); HEMATOCRIT 41.5 % (42.0-54.0); HEMOGLOBIN 14.3 g/dL (13.5-17.5); IMMATURE GRANULOCYTES 1.3 % (0-5); LYMPHOCYTES 17.6 % (15-50); MCH 30.9 pg (26.0-34.0); MCHC 34.5 g/dL (31.0-37.0); MCV 89.6 fL (80.0-100.0); MEAN PLATELET VOLUME 11.4 fL (7.4-10.4); MONOCYTES 8.8 % (2-11); NEUTROPHILS 71.4 % (40-80); PLATELET COUNT 139 10x3/uL (130-400); RBC 4.63 10x6/uL (4.20-6.10); RDW 12.9 % (11.5-14.5); WBC 7.8 10x3/uL (4.8-10.8)
[2017-07-17 06:19] LABS: ALBUMIN 2.3 g/dL (3.4-5.0); ANION GAP 13.9 mmol/L (8-16); BILIRUBIN - TOTAL 1.43 mg/dL (0.2-1.3); CALCIUM 8.8 mg/dL (8.5-10.1); CARBON DIOXIDE 23.8 mmol/L (21.0-32.0); CREATININE - SERUM 1.2 mg/dL (0.6-1.3); POTASSIUM - SERUM 3.7 mmol/L (3.5-5.1)
--- NOTE | 2017-07-17 07:20 | NUR ---
REPORT RECEIVED FROM CONSUMER LOAN PROCESSOR NURSE. CALL LIGHT IN REACH.
--- NOTE | 2017-07-17 07:35 | NUR ---
PATIENT IN BED WITH EYES OPEN AT THIS TIME. NO COMPLAINTS OR SIGNS OF DISTRESS. FAMILY AND SHAFTING WORKER AT BEDSIDE. CALL LIGHT WITHIN REACH.
[2017-07-17 09:03] VITALS: BP 175/100
--- NOTE | 2017-07-17 09:28 | NUR ---
ASSESSMENT COMPLETED. AM MEDS ADMINISTERED. RT CALLED FOR WHEEZING. CALL LIGHT IN REACH. IN ROOM. WILL CONTINUE WITH PLAN OF CARE.
--- NOTE | 2017-07-17 10:57 | NUR ---
GETTING EEG IN ROOM AT THIS TIME CALL LIGHT IN REACH.
--- NOTE | 2017-07-17 11:43 | NUR ---
Rehab Note- Acute Rehab Prescreen order received. The patient was seen by Dr. Mejía this AM & has ordered some tests at this time. Will follow the patient at this time. Thank you for this referral! Belen Lockett RN Clinical Liaison, [facility] Rehab
--- NOTE | 2017-07-17 12:00 | NUR ---
SPOKE WITH DR. FORDE ABOUT FAMILY'S CONCERN FOR HOME BP MEDS. NEW ORDERS RECEIVED.
[2017-07-17 12:05] VITALS: BP 183/99
--- NOTE | 2017-07-17 12:12 | NUR ---
ORAL BP MEDS ADMINISTERED PER ORDER. FSBS 222. HUMALOG 4 UNITS SUBQ TO RLQ ABDOMEN. CALL LIGHT IN REACH.
--- NOTE | 2017-07-17 14:00 | NUR ---
Rehab Note- Visited with the patient with a family member present. Stated he felt like he just needed to get home, that he had been having some hallucinations during his hospital stay and he felt it was best he get home as soon as poosible. Provided the patient with my contact. Informed Noe Morales of patient's decision at this time. Thank you for this referral! Belen Lockett RN Clinical Liaison, [facility] Rehab
--- NOTE | 2017-07-17 14:09 | NUR ---
STATES HIS EYES WERE HURTING BUT NOW THEY AREN'T. TOOK MANUAL BP AND IT WAS DOWN TO 138/72 ON RIGHT ARM. DOES NOT WANT ANYTHING FOR PAIN AT THIS TIME. WILL CONTINUE TO MONITOR.
--- NOTE | 2017-07-17 14:18 | NUR ---
LEFT MEESAGE WITH DR. MUJICA AND HIS NURSE ABOUT [facility] FOR PATIENT.
--- NOTE | 2017-07-17 15:15 | NUR ---
RACHEL CRAWFORD PER DR. BLAND'S ORDERS. TO XRAY VIA .
--- NOTE | 2017-07-17 16:34 | NUR ---
FSBS 167. HUMALOG 2 UNITS SUBQ TO RLQ. COREG PO. ANIYAH CATH DC'D WITH TIP INTACT. SISTER IN ROOM. CALL LIGHT IN REACH.
[2017-07-17 17:44] VITALS: BP 136/81
--- NOTE | 2017-07-17 18:02 | NUR ---
NO CHANGES IN INITIAL ASSESSMENT. FAMILY IN ROOM. CALL LIGHT IN REACH. BED ALARM ON. WILL CONTINUE WITH PLAN OF CARE.
--- NOTE | 2017-07-17 19:08 | NUR ---
AMBULATED 50 FEET IN HALLWAY WITH WALKER WITH ASSIST.
--- NOTE | 2017-07-17 19:56 | NUR ---
Patient received half sitting up in bed with his girlfriend and sister at the bedside. Visitors state they assisted patient with a bedbath and are trying to change his hospital gown. Lithographic Retoucher Apprentice assisted in placing new gown on and repositioning back into bed. PIV in left forearm is SL at this time. Oxygen is on @2L/min. Alert and oriented at this time. tile molder hand is on. Noted to have BLE edema. Denies pain or discomfort at this time.
[2017-07-17 23:59] VITALS: BP 121/86
[2017-07-18 04:00] VITALS: BP 127/81
[2017-07-18 04:52] LABS: BASOPHILS 0.7 % (0-2); EOSINOPHILS 0.4 % (0-7); HEMOGLOBIN 13.3 g/dL (13.5-17.5); IMMATURE GRANULOCYTES 4.4 % (0-5); LYMPHOCYTES 19.7 % (15-50); MCH 30.8 pg (26.0-34.0); MCHC 34.1 g/dL (31.0-37.0); MCV 90.3 fL (80.0-100.0); MEAN PLATELET VOLUME 10.8 fL (7.4-10.4); MONOCYTES 8.2 % (2-11); NEUTROPHILS 66.6 % (40-80); PLATELET COUNT 146 10x3/uL (130-400); RBC 4.32 10x6/uL (4.20-6.10); RDW 12.6 % (11.5-14.5); WBC 7.5 10x3/uL (4.8-10.8)
[2017-07-18 05:10] LABS: ALBUMIN 2.2 g/dL (3.4-5.0); ANION GAP 10.7 mmol/L (8-16); BILIRUBIN - TOTAL 1.2 mg/dL (0.2-1.3); CALCIUM 8.5 mg/dL (8.5-10.1); CARBON DIOXIDE 26.9 mmol/L (21.0-32.0); CREATININE - SERUM 1.3 mg/dL (0.6-1.3); POTASSIUM - SERUM 3.6 mmol/L (3.5-5.1); PROTEIN - SERUM 5.6 g/dL (6.4-8.2)
--- NOTE | 2017-07-18 05:14 | NUR ---
Has been up to BR x 2 using walker and staff assist. Slow moving, but steady gait. Has slept intermittently for long periods. Family member at bedside all night. No voiced complaints at this time.
[2017-07-18] MEDS ORDERED: CARDIZEM120 MG PO (06:36)
[2017-07-18] MEDS ORDERED: SINGULAIR10 MG PO (06:38)
[2017-07-18] MEDS ORDERED: PROAIR HFA8.5 GM INH (06:39)
--- NOTE | 2017-07-18 07:00 | NUR ---
Potassium = 3.6 chloride =100 no results for Sodium Phosphate or magnesium as of yet this morning for electrolyte protocol.
--- NOTE | 2017-07-18 07:30 | NUR ---
REPORT RECEIVED FROM RARE/ENDANGERED SPECIES SPECIALIST NURSE. CALL LIGHT IN REACH.
--- NOTE | 2017-07-18 08:55 | NUR ---
CM REASSESSMENT NOTE: PATIENT IS DISCHARGING TODAY /LIVES WITH SISTER (MALLIKA) SHE IS DRIVING HIM HOME/IMM SIGNED/LALY FORM SIGNED WITH [facility]
--- NOTE | 2017-07-18 08:55 | NUR ---
CM REASSESSMENT NOTE: PATIENT IS DISCHARGING TODAY /LIVES WITH SISTER (MALLIKA) SHE IS DRIVING HIM HOME/IMM SIGNED/LALY FORM SIGNED WITH [facility]
--- NOTE | 2017-07-18 09:03 | NUR ---
ASSESSMENT COMPLETED. AM MEDS ADMINISTERED. IV DC'D WITH TIP INTACT. O2 TAKEN OFF SO PATIENT CAN DO WALK TEST TO SEE IF HE NEEDS HOME 02. SISTER AT BEDSIDE. CALL LIGHT IN REACH. WILL CONTINUE WITH PLAN OF CARE.
[2017-07-18 09:33] VITALS: BP 152/85
--- NOTE | 2017-07-18 09:44 | NUR ---
O2 94% ON ROOM AIR AFTER AMBULATING IN HALLWAY.
--- NOTE | 2017-07-18 10:21 | NUR ---
CM REASSESSMENT NOTE; NURSE DID WALK TEST ON PATIENT AND NO OXYGEN NEEDED. TEST FILED IN CHART.
--- NOTE | 2017-07-18 11:35 | NUR ---
NORCO PO. BLOOD SUGAR 221. HUMALOG 4 UNITS SUBQ TO RIGHT ARM. SISTER IN ROOM. WAITING ON WALKER AND BREATHING MACHINE FOR DISCHARGE.
--- NOTE | 2017-07-18 13:37 | NUR ---
PT SEEN AND ASSESSED. NO COMPLAINTS AT PRESENT. CALL LIGHT IN REACH
[2017-07-18 13:40] VITALS: BP 192/81
--- NOTE | 2017-07-18 14:20 | NUR ---
DC'D TO VEHICLE VIA WC WITH SISTER.
--- NOTE | 2017-07-22 08:06 | EEG ---
PATIENT:FERNANDO DING DATE OF SERVICE: 07/10/17 MEDICAL RECORD: [id number] DATE OF : 49 LOCATION:D.222 D.MS ADMISSION DATE: 07/10/17 REFERRING PHYSICIAN: INTERPRETING PHYSICIAN: MICHAEL HURLEY MD DATE OF SERVICE: 07/17/2017 Electroencephalographic Report Referred by myself as an inpatient, currently in room 2226. ELECTROENCEPHALOGRAM NUMBER: [id number]. DATE OF EXAMINATION: 07/17/2017 at 10:30 a.m. TECHNICAL DATA: This electroencephalographic recording consists of approximately 20 minutes of data collection utilizing the international 10/20 system of electrode placement and both referential and non-referential montages. Sixteen channels of electrocerebral recording are accompanied by a 17th channel dedicated to the electrocardiographic rhythm and 2 channels of electromyographic recording. Recording is performed in the awake and sleep states utilizing activation by photic stimulation. ELECTROENCEPHALOGRAPHIC DATA: The awake state comprises only approximately 30% of the recorded electrocerebral activity. Electromyographic artifact is prominent and rapid eye movements are seen. The posterior dominant background consists of a symmetric, semi-rhythmic, waxing and waning 6-7 Hz theta activity, which is suppressed by eye opening. Also seen is an intermittent irregular, generalized and symmetric 2-3 Hz delta slowing, which occurs for periods of 1-2 seconds approximately once every 1-2 pages. The drowsy state comprises approximately 40% of the recorded electrocerebral activity. Electromyographic artifact is diminished and rapid eye movements are not seen. The posterior dominant background is relatively suppressed. The transition to stage II sleep, which comprises the remaining portion of the recorded electrocerebral activity is heralded by the appearance of typical 15 Hz sleep spindles of these are not well developed here. Delta slowing is much more prominent in stage II sleep and posterior dominant background is absent. No focal slowing is identified. No epileptiform discharges are seen. Photic stimulation induces no abnormal change in the recorded electrocerebral activity. INTERPRETATION: 1. Intermittent slow, generalized (awake and asleep). 2. Background slow. This electroencephalographic recording is indicative of a moderate diffuse encephalopathy. TRANSINT:[id number] Voice Confirmation ID: [id number] DOCUMENT ID: [id number] ELECTROENCEPHALOGRAM REPORT [id number] FERNANDO DING MICHAEL HURLEY MD at 0806 CC: [id number] DICTATION DATE: 07/18/17811 WEBSITE OPTIMIZATION STRATEGIST: 07/18/17 2238 DIS IN 07/18/17 [place] [id number] [place] [id number]
== END 2017-07-18 14:20 | disposition home health service (06) | DRG 417 ==
LOC: D.ER 12:03 → D.ICU 15:45 → D.M2 15:45 → D.MS 15:45 → D.ICU 07-13 12:01 → D.MS 07-16 12:42
PROVIDERS: Emergency Medicine; Family Medicine; Internal Medicine Gastroenterology; Internal Medicine Pulmonary Disease; Surgery; ADMIT Family Medicine
PROC: BF101ZZ Fluoroscopy of Bile Ducts using Low Osmolar Contrast (ICD-10-PCS; 2017-07-13)
PROC: 0FT44ZZ Resection of Gallbladder, Percutaneous Endoscopic Approach (ICD-10-PCS; principal; 2017-07-13 10:00)
PROC: 0FB04ZX Excision of Liver, Percutaneous Endoscopic Approach, Diagnostic (ICD-10-PCS; 2017-07-13 10:00)
DX: K80.50 Calculus of bile duct without cholangitis or cholecystitis without obstruction (principal); G93.49 Other encephalopathy; B17.9 Acute viral hepatitis, unspecified; I16.9 Hypertensive crisis, unspecified; F05 Delirium due to known physiological condition; J98.11 Atelectasis; N17.9 Acute kidney failure, unspecified; K57.90 Diverticulosis of intestine, part unspecified, without perforation or abscess without bleeding; I11.0 Hypertensive heart disease with heart failure; I50.9 Heart failure, unspecified; E78.5 Hyperlipidemia, unspecified; E11.40 Type 2 diabetes mellitus with diabetic neuropathy, unspecified; F03.90 Unspecified dementia, unspecified severity, without behavioral disturbance, psychotic disturbance, mood disturbance, and anxiety; G47.33 Obstructive sleep apnea (adult) (pediatric); Z95.810 Presence of automatic (implantable) cardiac defibrillator

== ENCOUNTER → 2018-08-12 12:52 | Outpatient (CLI) | payer MEDICARE ==
[2017-07-11 13:38] VITALS: BMI 32.5
[~2018-08-12 12:52] MED LIST: ANTIVERT12.5 MG PO; ASPIRIN325 MG PO; CARDIZEM120 MG PO; COREG12.5 MG PO; COZAAR50 MG PO; FLOMAX0.4 MG PO; FOLIC ACID0.8 MG PO; GLUCOPHAGE1000 MG PO; LANOXIN125 MCG PO; LUTEIN20 MG PO; MAGNESIUM OXID250 MG PO; OMEPRAZOLE20 M1 PO; PAXIL20 MG PO; PROAIR HFA8.5 GM INH; PROSCAR5 MG PO; PYRIDOXINE HCL100 MG PO; SINGULAIR10 MG PO; VITAMIN B-121000 MCG PO; VITAMIN D5000 UNIT PO; ZOCOR40 MG PO; ZYLOPRIM100 MG PO
== END | disposition home or self-care (01) ==
LOC: D.US 12:52
DX: I73.9 Peripheral vascular disease, unspecified (principal)

== ENCOUNTER 2018-09-23 23:15 | Emergency (ER) | payer MEDICARE ==
[~2018-09-23] VITALS: Ht 172.7 cm; Wt 100.0 kg
[2018-09-23 23:25] VITALS: Ht 172.7 cm; Wt 100.0 kg
[2018-09-23] MEDS ORDERED: CIPRO250 MG (23:28)
[2018-09-23] MEDS ORDERED: AVODART0.5 MG PO ×2 (23:28→23:34)
[2018-09-23] MEDS ORDERED: CIPRO500 MG PO (23:33)
[2018-09-23] MEDS ORDERED: ZYLOPRIM100 MG PO (23:33)
[2018-09-23] MEDS ORDERED: PLAVIX75 MG PO (23:33)
[2018-09-23] MEDS ORDERED: COREG25 MG PO (23:33)
[2018-09-23] MEDS ORDERED: GABAPENTIN100 MG PO (23:34)
[2018-09-23] MEDS ORDERED: LANOXIN125 MCG PO (23:34)
[2018-09-23] MEDS ORDERED: GLUCOTROL XL 1010 MG PO (23:34)
[2018-09-23] MEDS ORDERED: COZAAR100 MG PO (23:35)
[2018-09-23] MEDS ORDERED: HYDRALAZINE HCL50 MG PO (23:35)
[2018-09-23] MEDS ORDERED: GLUCOPHAGE500 MG (23:35)
[2018-09-23] MEDS ORDERED: MYRBETRIQ50 MG PO (23:36)
[2018-09-23] MEDS ORDERED: SINGULAIR10 MG (23:36)
[2018-09-23] MEDS ORDERED: OMEPRAZOLE20 M1 PO (23:37)
[2018-09-23] MEDS ORDERED: CRESTOR10 MG PO (23:37)
[2018-09-23] MEDS ORDERED: PAXIL10 MG/5 ML PO (23:37)
[2018-09-23] MEDS ORDERED: JANUVIA100 MG PO (23:37)
[2018-09-23] MEDS ORDERED: XARELTO15 MG PO (23:37)
[2018-09-24 00:03] LABS: APPEARANCE CLEAR (CLEAR); BILIRUBIN NEGATIVE (NEGATIVE); COLOR YELLOW (YELLOW); GLUCOSE 1000 mg/dL (NEGATIVE); KETONE NEGATIVE (NEGATIVE); NITRITE NEGATIVE (NEGATIVE); PROTEIN NEGATIVE (NEGATIVE); SPECIFIC GRAVITY 1.015 (1.005-1.020); UROBILINOGEN NORMAL (NORMAL)
[2018-09-24 00:38] LABS: BASOPHILS 0 % (0-2); EOSINOPHILS 0 % (0-7); HEMATOCRIT 30.7 % (42.0-54.0); HEMOGLOBIN 9.5 g/dL (13.5-17.5); IMMATURE GRANULOCYTES 0.6 % (0-5); LYMPHOCYTES 3.7 % (15-50); MCH 23.2 pg (26.0-34.0); MCHC 30.9 g/dL (31.0-37.0); MCV 74.9 fL (80.0-100.0); MEAN PLATELET VOLUME 10.8 fL (7.4-10.4); MONOCYTES 6.5 % (2-11); NEUTROPHILS 89.2 % (40-80); PLATELET COUNT 164 10x3/uL (130-400); RDW 15.2 % (11.5-14.5); WBC 12.8 10x3/uL (4.8-10.8)
[2018-09-24 00:54] LABS: ALBUMIN 3.1 g/dL (3.4-5.0); ALKALINE PHOSPHATASE 64 U/L (46-116); ALT (SGPT) 24 U/L (10-68); BILIRUBIN - TOTAL 0.25 mg/dL (0.2-1.3); CALC OSMOLALITY 292 mosm/kg (275-300); CALCIUM 8.7 mg/dL (8.5-10.1); CARBON DIOXIDE 28.5 mmol/L (21.0-32.0); CHLORIDE - SERUM 97 mmol/L (98-107); CREATININE - SERUM 1.9 mg/dL (0.6-1.3); POTASSIUM - SERUM 3.8 mmol/L (3.5-5.1); PROTEIN - SERUM 6.6 g/dL (6.4-8.2); SODIUM 134 mmol/L (136-145); UREA NITROGEN 42 mg/dL (7-18); eGFR NON AFRICAN AMERICAN 37 mL/min (90-120)
[2018-09-24 00:56] LABS: GLUCOSE 345 mg/dL (74-106)
[2018-09-24 01:00] LABS: CKMB 1.6 U/L (0.0-3.6); CREATINE KINASE 59 UL (21-232); THYROID STIMULATING HORMONE 0.63 uIU/mL (0.36-3.74); TROPONIN-I < 0.017 ng/mL (0.000-0.060)
[2018-09-24 03:57] VITALS: BP 143/93
== END 2018-09-24 03:59 | disposition home or self-care (01) ==
LOC: D.ER 23:15
PROVIDERS: Family Medicine
DX: J44.1 Chronic obstructive pulmonary disease with (acute) exacerbation (principal); Z86.73 Personal history of transient ischemic attack (TIA), and cerebral infarction without residual deficits; I11.0 Hypertensive heart disease with heart failure; I50.9 Heart failure, unspecified

== ENCOUNTER → 2018-11-15 12:15 | Outpatient (CLI) | payer MEDICARE ==
[2018-09-23 23:25] VITALS: BMI 33.5
[~2018-11-15 12:15] MED LIST changes: +AVODART0.5 MG PO; +CIPRO250 MG; +CIPRO500 MG PO; +COREG25 MG PO; +COZAAR100 MG PO; +CRESTOR10 MG PO; +GABAPENTIN100 MG PO; +GLUCOPHAGE500 MG; +GLUCOTROL XL 1010 MG PO; +HYDRALAZINE HCL50 MG PO; +JANUVIA100 MG PO; +MYRBETRIQ50 MG PO; +PAXIL10 MG/5 ML PO; +PLAVIX75 MG PO; +SINGULAIR10 MG; +XARELTO15 MG PO
== END | disposition home or self-care (01) ==
LOC: D.RAD 12:15
DX: K21.9 Gastro-esophageal reflux disease without esophagitis (principal)